=== PATIENT | male | born 1990 | race Caucasian/White ===

== ENCOUNTER 2024-06-09 09:24 | Observation (INO) ==
[2024-06-09] MEDS ORDERED: BENADRYL INJ 50 MG VIAL IV PRN (10:50)
[2024-06-09] MEDS ORDERED: MORPHINE SULFATE INJ 2 MG INJ IVP PRN (10:50)
--- NOTE | 2024-06-09 11:23 | DR.H&P ---
H&P History & Physical for Day of: H&P Date: 06/09/24 Chief Complaint Chief Complaint: "CANNOT KEEP ANYTHING DOWN" "ABDOMINAL PAIN" History of Present Illness History of Present Illness: PT IS 33 WM, DIRECT ADMIT FROM DR CHAPMAN OFFICE WITH INTRACTALBE ABDOMINAL PAIN WITH N/V, SEVERE SINCE THURSDAY. PT WAS SEEN IN THE ER ~3 WEEKS AGO WITH DEHYDRATION AND PANCREATITIS. SINCE ER VISIT PT HAS BEEN ON BLAND DIET, PROTONIX 40MG PO BID, PEPCID, CARAFATE, BENTYL AND PRN PHENERGAN WITHOUT IMPROVEMENT. PT HAD US OF GB ON OUTPT WITHOUT ACUTE FINDINGS. PT HAS NEEN REFERRED TO DR RUDOLPH ON OP, BUT DUE TO SEVERE SYMPTOMS AND ELECTROLYTE IMBALANCE PT ADMITTED FOR IV HYDRATION, PAIN CONTROL AND GI CONSULT. Past Surgical History Surgical History: Tonsillectomy Family History Family Medical History: ME and Hypertension Allergies Allergies Allergy/AdvReac Type Severity Reaction Status Date / Time Penicillins Allergy Verified 05/14/24 16:24 Review of Systems Constitutional: Weakness Eyes: No Symptoms Reported ENT: No Symptoms Reported Respiratory: No Symptoms Reported Cardiovascular: Palpitations Gastrointestinal: Nausea, Vomiting and Abdominal Pain Genitourinary: No Symptoms Reported Musculoskeletal: Back Pain Skin: No Symptoms Reported Neurological: Weakness Oriented: Normal Eyes: Normal Ear: Normal Nose: Normal Throat: Normal Respiratory: Clear Throughout Cardiovascular: Normal Auscultation: Bowel Sounds: Normal Palpation: Normal Tenderness: Normal Skin: Decreased Turgur Musculoskeletal: Back:Lumbar Mood Description: Anxious Affect: Normal Speech Pattern: Clear and Appropriate Assessment/Plan (1) Acute gastritis: Status: Acute Plan: ADMIT, NPO IV HYDRATION, PPI THERAPY BID PAIN CONTROL, ADMISSION LABS GI CONSULT WITH DR EVANS, RECOMMEND UPPER GI (2) Esophagitis: Status: Acute (3) Weight loss: Status: Acute (4) Dehydration, mild: Status: Acute
[2024-06-09] MEDS: D5 LR IV PRN (11:40)
[2024-06-09] MEDS: XYLOCAINE 2 % (PLAIN) INJ PRN (11:57)
[2024-06-09] MEDS: DIPRIVAN VIAL 320 ML IVP PRN (11:58)
[2024-06-09] MEDS: ZOFRAN INJ 4 MG VIAL IVP PRN ×2 (12:26→17:56)
[2024-06-09] MEDS: PROTONIX INJ 40 MG VIAL IVP SCH (12:27)
[2024-06-09] MEDS ORDERED: BENADRYL INJ 50 MG VIAL ONE (13:23)
[2024-06-09 13:26] LABS: ALANINE AMINOTRANSFERASE 25 Units/L (12-78); ALBUMIN 4.4 g/dL (3.4-5.0); ALKALINE PHOSPHATASE 71 Units/L (46-116); AMYLASE 76 Units/L (25-115); ASPARTATE AMINO TRANSFERASE 17 Units/L (15-37); BASOPHILS # (AUTO) 0.1 X10^3/uL (0.0-0.1); BLOOD UREA NITROGEN 16 mg/dL (7-18); CALCIUM 9.1 mg/dL (8.5-10.1); CARBON DIOXIDE 26.6 mmol/L (21-32); CHLORIDE 103 mmol/L (98-107); COR NA(FOR HYPERGLY) 141 mmol/L (136-145); CREATININE 1.09 mg/dL (0.70-1.30); EOSINOPHILS # (AUTO) 0.1 x10^3/uL (0.0-0.2); EOSINOPHILS % (AUTO) 1.6 % (0.9-2.9); GLUCOSE 130 mg/dL (65-99); HEMATOCRIT 42.3 % (42.0-54.0); HEMOGLOBIN 14.8 g/dL (13.5-18.0); LIPASE 33 Units/L (16-77); LYMPHOCYTES # (AUTO) 1.8 X10^3/uL (1.3-2.9); LYMPHOCYTES % (AUTO) 25.2 % (21.0-51.0); MEAN CORPUSCULAR HEMOGLOBIN 31.2 pg (27.0-34.0); MEAN CORPUSCULAR HGB CONC 34.9 g/dL (33.0-35.0); MEAN CORPUSCULAR VOLUME 89.3 fL (80.0-100.0); MEAN PLATELET VOLUME 8.9 fL (7.4-11.0); MONOCYTES # (AUTO) 0.5 x10^3/uL (0.3-0.8); MONOCYTES % (AUTO) 7.4 % (0.0-13.0); NEUTROPHILS # (AUTO) 4.7 x10^3/uL (2.2-4.8); NEUTROPHILS % (AUTO) 64.8 % (42.0-75.0); PLATELET COUNT 238 X10^3/uL (150.0-450.0); POTASSIUM 3.5 mmol/L (3.5-5.1); RED BLOOD COUNT 4.73 X10^6/uL (4.7-6.0); RED CELL DISTRIBUTION WIDTH 12.4 % (11.6-16.5); SODIUM 140 mmol/L (136-145); WHITE BLOOD COUNT 7.3 X10^3/uL (3.6-10.0); eGFR NON BLACK RACES > 60 (>60)
[2024-06-09] MEDS: BENADRYL INJ 50 MG VIAL IV PRN (13:29)
[2024-06-09 13:45] VITALS: BMI 21.9
[2024-06-09] MEDS: PEPCID 20 MG VIAL IVP ONE (14:00)
[2024-06-09] MEDS ORDERED: CONSULT PHARMACY - POTASSIUM & MAGNESIUM XX SCH (14:00)
[2024-06-09] MEDS: PHENERGAN INJ 25 MG IM ONE (14:00)
[2024-06-09] MEDS: NS 1,000 ML IV 1,000 ML IV SCH (15:47)
[2024-06-09] MEDS: K-RIDER 10 MEQ/100 ML WATER 10 MEQ/100 ML BAG IV SCH ×2 (15:48→22:07)
[2024-06-09] MEDS ORDERED: STERILE WATER IRRIGATION IR ONE (15:55)
[2024-06-09] MEDS ORDERED: LEVSIN/MAALOX/LIDOC VISC PO PRN (17:57)
[2024-06-09] MEDS ORDERED: OFIRMEV IV 1000 MG VIAL 1,000 MG/100 ML VIAL IV PRN (17:58)
[2024-06-09] MEDS: TORADOL 15 MG VIAL IVP PRN (22:37)
[2024-06-09] MEDS: NS 250 ML IV 250 ML IV ONE (22:40)
[2024-06-10] MEDS: D5 LR 1,000 ML 1,000 ML IV ONE (01:19)
[2024-06-10] MEDS: DIPRIVAN VIAL 20 ML ONE ×2 (01:20)
[2024-06-10 04:22] VITALS: O2SAT 98
[2024-06-10 06:27] LABS: BASOPHILS % (AUTO) 0.8 % (0.2-1.0); EOSINOPHILS # (AUTO) 0.4 x10^3/uL (0.0-0.2); EOSINOPHILS % (AUTO) 6.3 % (0.9-2.9); HEMATOCRIT 35.2 % (42.0-54.0); HEMOGLOBIN 12.6 g/dL (13.5-18.0); LYMPHOCYTES % (AUTO) 33.8 % (21.0-51.0); MEAN CORPUSCULAR HEMOGLOBIN 31.8 pg (27.0-34.0); MEAN CORPUSCULAR HGB CONC 35.7 g/dL (33.0-35.0); MEAN CORPUSCULAR VOLUME 89.2 fL (80.0-100.0); MEAN PLATELET VOLUME 8.8 fL (7.4-11.0); MONOCYTES # (AUTO) 0.5 x10^3/uL (0.3-0.8); MONOCYTES % (AUTO) 8.3 % (0.0-13.0); NEUTROPHILS % (AUTO) 50.8 % (42.0-75.0); PLATELET COUNT 168 X10^3/uL (150.0-450.0); RED BLOOD COUNT 3.95 X10^6/uL (4.7-6.0); RED CELL DISTRIBUTION WIDTH 12.5 % (11.6-16.5); WHITE BLOOD COUNT 5.8 X10^3/uL (3.6-10.0)
[2024-06-10 06:44] LABS: ALANINE AMINOTRANSFERASE 19 Units/L (12-78); ALBUMIN 3.3 g/dL (3.4-5.0); ALKALINE PHOSPHATASE 52 Units/L (46-116); ASPARTATE AMINO TRANSFERASE 24 Units/L (15-37); BLOOD UREA NITROGEN 16 mg/dL (7-18); CALCIUM 8.2 mg/dL (8.5-10.1); CARBON DIOXIDE 26.7 mmol/L (21-32); CHLORIDE 109 mmol/L (98-107); COR CA(FOR HYPOALB) 8.8 mg/dL (8.5-10.1); CREATININE 0.93 mg/dL (0.70-1.30); GLUCOSE 95 mg/dL (65-99); POTASSIUM 3.7 mmol/L (3.5-5.1); SODIUM 142 mmol/L (136-145); TOTAL PROTEIN 6.1 g/dL (6.4-8.2); eGFR NON BLACK RACES > 60 (>60)
[2024-06-10] MEDS ORDERED: CONSULT PHARMACY - POTASSIUM & MAGNESIUM XX SCH (07:00)
[2024-06-10] MEDS ORDERED: KINEVAC ONE (08:55)
[2024-06-10] MEDS ORDERED: KINEVAC IV ONE (09:00)
[2024-06-10] MEDS ORDERED: NS IV ONE (09:00)
[2024-06-10 10:58] LABS: BILIRUBIN,URINE NEGATIVE (NEGATIVE); BLOOD/HEMOGLOBIN,URINE NEGATIVE (NEGATIVE); GLUCOSE, URINE NEGATIVE (NEGATIVE); KETONES,URINE 3+ (NEGATIVE); LEUKOCYTE ESTERASE ,URINE NEGATIVE (NEGATIVE); NITRITES,URINE NEGATIVE (NEGATIVE); PROTEIN,URINE NEGATIVE (NEGATIVE); UROBILINOGEN,URINE NORMAL (NORMAL)
[2024-06-10 11:06] LABS: APPEARANCE,URINE CLEAR (CLEAR); COLOR,URINE YELLOW (YELLOW)
--- NOTE | 2024-06-10 11:50 | NM ---
EXAM:HIDA/HEPATOBILIARY SCAN W/EFHISTORY:erosive gastritis, duodenitis; 6.5mCi 99mTc Mebrofenin 1.2mcg KinevacCOMPARISON:None.TECHNIQUE:Followi ng the intravenous administration of the radiopharmaceutical, dynamic imaging was performed over the for 60 minutes. 1.2 mcg of Kinevac was injected intravenously and the gallbladder ejection fracture was measured over the following 30 minutes.FINDINGS:The liver concentrates and excretes the radiopharmaceutical normally. The gallbladder fills with activity. Following the injection of the Kinevac there is a proximally 13% emptying.IMPRESSION:Normal liver function and no evidence for biliary duct obstruction. There is incomplete gallbladder emptying.THIS IS AN ELECTRONICALLY VERIFIED FINAL REPORT06/10/2024 11:47 AM - Electronically signed by Jose Cruz Huynh MD
[2024-06-10 12:50] VITALS: BP 121/78; PULSE 76; RESP 19; TEMP 98.5
== END 2024-06-10 13:20 | disposition home or self-care (01) ==
LOC: MED/SURG
PROVIDERS: ADMIT Internal Medicine; ATTEND Internal Medicine
DX: R63.4 Abnormal weight loss; K29.60 Other gastritis without bleeding; Z68.22 Body mass index [BMI] 22.0-22.9, adult; K90.49 Malabsorption due to intolerance, not elsewhere classified; R73.09 Other abnormal glucose; K82.8 Other specified diseases of gallbladder; R11.2 Nausea with vomiting, unspecified; R10.84 Generalized abdominal pain; K21.00 Gastro-esophageal reflux disease with esophagitis, without bleeding; R10.13 Epigastric pain

== ENCOUNTER 2024-06-14 09:22 | Observation (INO) ==
[2024-06-14 10:29] LABS: BASOPHILS % (AUTO) 0.5 % (0.2-1.0); EOSINOPHILS # (AUTO) 0.2 x10^3/uL (0.0-0.2); EOSINOPHILS % (AUTO) 1.4 % (0.9-2.9); HEMATOCRIT 41.8 % (42.0-54.0); HEMOGLOBIN 14.8 g/dL (13.5-18.0); LYMPHOCYTES # (AUTO) 0.9 X10^3/uL (1.3-2.9); LYMPHOCYTES % (AUTO) 8.7 % (21.0-51.0); MEAN CORPUSCULAR HEMOGLOBIN 31.3 pg (27.0-34.0); MEAN CORPUSCULAR HGB CONC 35.3 g/dL (33.0-35.0); MEAN CORPUSCULAR VOLUME 88.4 fL (80.0-100.0); MEAN PLATELET VOLUME 8.4 fL (7.4-11.0); MONOCYTES # (AUTO) 0.5 x10^3/uL (0.3-0.8); MONOCYTES % (AUTO) 4.5 % (0.0-13.0); NEUTROPHILS # (AUTO) 8.9 x10^3/uL (2.2-4.8); NEUTROPHILS % (AUTO) 84.9 % (42.0-75.0); PLATELET COUNT 230 X10^3/uL (150.0-450.0); RED BLOOD COUNT 4.73 X10^6/uL (4.7-6.0); RED CELL DISTRIBUTION WIDTH 12.5 % (11.6-16.5); WHITE BLOOD COUNT 10.5 X10^3/uL (3.6-10.0)
[2024-06-14 10:44] LABS: ALANINE AMINOTRANSFERASE 23 Units/L (12-78); ALBUMIN 4.5 g/dL (3.4-5.0); ALKALINE PHOSPHATASE 67 Units/L (46-116); AMYLASE 60 Units/L (25-115); ASPARTATE AMINO TRANSFERASE 18 Units/L (15-37); BLOOD UREA NITROGEN 16 mg/dL (7-18); CALCIUM 9.3 mg/dL (8.5-10.1); CARBON DIOXIDE 24.6 mmol/L (21-32); CHLORIDE 103 mmol/L (98-107); COR NA(FOR HYPERGLY) 140 mmol/L (136-145); CREATININE 1.11 mg/dL (0.70-1.30); GLUCOSE 115 mg/dL (65-99); LIPASE 30 Units/L (16-77); POTASSIUM 3.6 mmol/L (3.5-5.1); SODIUM 140 mmol/L (136-145); eGFR NON BLACK RACES > 60 (>60)
[2024-06-14] MEDS: D5 1/2 NS 1,000 ML 1,000 ML IV SCH (10:44)
[2024-06-14] MEDS: ZOFRAN INJ 4 MG VIAL IVP PRN ×3 (10:46→17:40)
[2024-06-14] MEDS: DILAUDID INJ IVP PRN ×3 (10:49→17:53)
[2024-06-14 11:34] VITALS: BMI 21.6
[2024-06-14] MEDS ORDERED: BRIDION ONE (15:29)
[2024-06-14] MEDS ORDERED: ZOFRAN INJ 4 MG VIAL ONE ×2 (15:29→17:37)
[2024-06-14] MEDS ORDERED: ZEMURON 100 MG VIAL ONE (15:29)
[2024-06-14] MEDS ORDERED: DIPRIVAN VIAL 20 ML ONE (15:29)
[2024-06-14] MEDS ORDERED: OFIRMEV IV 1000 MG VIAL 1,000 MG/100 ML VIAL IV ONE (15:29)
[2024-06-14] MEDS ORDERED: REGLAN INJ 10 MG VIAL ONE (15:29)
[2024-06-14] MEDS ORDERED: PEPCID 20 MG VIAL ONE (15:29)
[2024-06-14] MEDS ORDERED: PRECEDEX INJ VIAL ONE (15:29)
[2024-06-14] MEDS ORDERED: XYLOCAINE 2 % (PLAIN) ONE (15:31)
[2024-06-14] MEDS ORDERED: BACTROBAN TOPICAL OINT ONE (15:31)
[2024-06-14] MEDS ORDERED: LR 1,000 ML IV 1,000 ML IV ONE (15:32)
[2024-06-14] MEDS ORDERED: VERSED ONE (15:32)
[2024-06-14] MEDS ORDERED: FENTANYL VIAL INJ 100 mcg ONE (15:32)
[2024-06-14] MEDS ORDERED: ANCEF VIAL 1 GRAM ONE (15:33)
[2024-06-14] MEDS ORDERED: NS 100 ML IV 100 ML ONE (15:34)
[2024-06-14] MEDS ORDERED: DECADRON INJ ONE (15:35)
[2024-06-14] MEDS ORDERED: BARHEMSYS INJ ONE (15:38)
[2024-06-14] MEDS: LR 1,000 ML IV 900 ML IV PRN (15:45)
[2024-06-14] MEDS: TRANSDERM-SCOP TD PRN (15:45)
[2024-06-14] MEDS: REGLAN INJ 10 MG VIAL IVP PRN (15:45)
[2024-06-14] MEDS: PEPCID 20 MG VIAL IVP PRN (15:45)
[2024-06-14] MEDS: VERSED IVP PRN (16:00)
[2024-06-14] MEDS ORDERED: DILAUDID INJ ONE ×2 (16:09→17:52)
[2024-06-14] MEDS ORDERED: KETAMINE HCL ONE (16:10)
[2024-06-14] MEDS: ANCEF VIAL 1 GRAM IV PRN (16:10)
[2024-06-14] MEDS ORDERED: ULTANE GAS IN ONE (16:10)
[2024-06-14] MEDS: FENTANYL VIAL INJ 100 mcg IVP PRN (16:15)
[2024-06-14] MEDS: XYLOCAINE 2 % (PLAIN) IJ PRN (16:15)
[2024-06-14] MEDS: ZEMURON 100 MG VIAL IVP PRN (16:15)
[2024-06-14] MEDS: KETAMINE HCL IV PRN (16:15)
[2024-06-14] MEDS: DECADRON INJ IVP PRN (16:24)
[2024-06-14] MEDS ORDERED: BENADRYL INJ 50 MG VIAL IVP PRN (16:29)
[2024-06-14] MEDS: OFIRMEV IV 1000 MG VIAL 1,000 MG/100 ML VIAL IV PRN (16:30)
[2024-06-14] MEDS ORDERED: NORMODYNE INJ 20 MG VIAL ONE (16:42)
[2024-06-14] MEDS: PRECEDEX INJ VIAL IVP PRN (16:57)
[2024-06-14] MEDS ORDERED: TORADOL 30 MG VIAL ONE (17:01)
[2024-06-14] MEDS: TORADOL 30 MG VIAL IVP PRN (17:03)
[2024-06-14] MEDS: NORMODYNE INJ 20 MG VIAL IVP PRN (17:03)
[2024-06-14] MEDS: DANTRIUM IVP PRN (17:09)
[2024-06-14] MEDS: BRIDION IVP PRN (17:10)
[2024-06-14] MEDS: DIPRIVAN VIAL 150 ML IVP PRN (17:21)
[2024-06-14] MEDS ORDERED: ZOFRAN INJ 4 MG VIAL IVP PRN (17:35)
[2024-06-14] MEDS ORDERED: D5 1/2 NS 1,000 ML 1,000 ML IV ONE (17:57)
[2024-06-14] MEDS: PROTONIX INJ 40 MG VIAL IVP SCH (20:17)
[2024-06-15 04:31] VITALS: TEMP 97.5
[2024-06-15 05:44] LABS: BASOPHILS % (AUTO) 0.1 % (0.2-1.0); HEMATOCRIT 36.4 % (42.0-54.0); HEMOGLOBIN 12.8 g/dL (13.5-18.0); LYMPHOCYTES # (AUTO) 0.9 X10^3/uL (1.3-2.9); LYMPHOCYTES % (AUTO) 9.9 % (21.0-51.0); MEAN CORPUSCULAR HEMOGLOBIN 31.3 pg (27.0-34.0); MEAN CORPUSCULAR VOLUME 89.5 fL (80.0-100.0); MEAN PLATELET VOLUME 8.7 fL (7.4-11.0); MONOCYTES # (AUTO) 0.6 x10^3/uL (0.3-0.8); MONOCYTES % (AUTO) 6.8 % (0.0-13.0); NEUTROPHILS # (AUTO) 7.5 x10^3/uL (2.2-4.8); NEUTROPHILS % (AUTO) 83.2 % (42.0-75.0); PLATELET COUNT 213 X10^3/uL (150.0-450.0); RED BLOOD COUNT 4.07 X10^6/uL (4.7-6.0); RED CELL DISTRIBUTION WIDTH 12.6 % (11.6-16.5); WHITE BLOOD COUNT 9.1 X10^3/uL (3.6-10.0)
[2024-06-15 05:57] LABS: ALANINE AMINOTRANSFERASE 29 Units/L (12-78); ALBUMIN 3.4 g/dL (3.4-5.0); ALKALINE PHOSPHATASE 55 Units/L (46-116); AMYLASE 50 Units/L (25-115); ASPARTATE AMINO TRANSFERASE 21 Units/L (15-37); BLOOD UREA NITROGEN 10 mg/dL (7-18); CALCIUM 8.3 mg/dL (8.5-10.1); CARBON DIOXIDE 28.7 mmol/L (21-32); CHLORIDE 104 mmol/L (98-107); COR NA(FOR HYPERGLY) 140 mmol/L (136-145); GLUCOSE 139 mg/dL (65-99); LIPASE 28 Units/L (16-77); MAGNESIUM 1.9 mg/dL (2.0-2.9); POTASSIUM 4.5 mmol/L (3.5-5.1); SODIUM 139 mmol/L (136-145); TOTAL PROTEIN 6.4 g/dL (6.4-8.2); eGFR NON BLACK RACES > 60 (>60)
[2024-06-15 08:26] VITALS: BP 129/83; PULSE 72; O2SAT 96
[2024-06-15] MEDS ORDERED: CONSULT PHARMACY - POTASSIUM & MAGNESIUM XX SCH (09:00)
[2024-06-15] MEDS: MAG-OX TAB PO SCH (09:26)
[2024-06-15 10:10] VITALS: RESP 16
== END 2024-06-15 12:00 | disposition home or self-care (01) ==
LOC: MED/SURG
PROVIDERS: ADMIT Surgery; ATTEND Surgery
DX: E83.42 Hypomagnesemia; R73.09 Other abnormal glucose; K82.8 Other specified diseases of gallbladder; R10.84 Generalized abdominal pain; R11.2 Nausea with vomiting, unspecified

== ENCOUNTER 2024-06-16 07:21 | Observation (INO) ==
[2024-06-16] MEDS ORDERED: MORPHINE SULFATE INJ 2 MG INJ ONE (07:36)
[2024-06-16 07:40] LABS: BASOPHILS # (AUTO) 0.1 X10^3/uL (0.0-0.1); BASOPHILS % (AUTO) 0.6 % (0.2-1.0); EOSINOPHILS # (AUTO) 0.1 x10^3/uL (0.0-0.2); EOSINOPHILS % (AUTO) 1.2 % (0.9-2.9); HEMATOCRIT 40.6 % (42.0-54.0); HEMOGLOBIN 14.3 g/dL (13.5-18.0); LYMPHOCYTES % (AUTO) 10.5 % (21.0-51.0); MEAN CORPUSCULAR HEMOGLOBIN 31.4 pg (27.0-34.0); MEAN CORPUSCULAR HGB CONC 35.2 g/dL (33.0-35.0); MEAN CORPUSCULAR VOLUME 89.1 fL (80.0-100.0); MEAN PLATELET VOLUME 8.5 fL (7.4-11.0); MONOCYTES # (AUTO) 0.7 x10^3/uL (0.3-0.8); MONOCYTES % (AUTO) 7.4 % (0.0-13.0); NEUTROPHILS # (AUTO) 7.3 x10^3/uL (2.2-4.8); NEUTROPHILS % (AUTO) 80.3 % (42.0-75.0); PLATELET COUNT 219 X10^3/uL (150.0-450.0); RED BLOOD COUNT 4.56 X10^6/uL (4.7-6.0); RED CELL DISTRIBUTION WIDTH 12.6 % (11.6-16.5); WHITE BLOOD COUNT 9.1 X10^3/uL (3.6-10.0)
[2024-06-16] MEDS: ZOFRAN INJ 4 MG VIAL IVP ONE ×2 (07:41→11:13)
[2024-06-16] MEDS: MORPHINE SULFATE INJ 2 MG INJ IVP ONE (07:43)
--- NOTE | 2024-06-16 08:07 | DR.EXTPAIN ---
HPI Time seen Time Seen by Provider: 06/16/24 08:05 PCP Primary Care Physician: tre valle HPI Comment HPI Comment: Patient cholecystectomy on Thursday. Started having abdominal pain in the umbilical area with nausea since 5 in the morning. Denies vomiting diarrhea. Denies fever. Denies chest pain or shortness of breath. Complaint/Symptoms Chief Complaint:: Patient states thursday he had his gallbladder out with dr price and this morning around 0500 he started having pain in his umbilical area along with nausea. Denies any vomiting or diarrhea. COVID-19 Coronavirus risk:travel/contact w/high risk person: No Has patient experienced Coronavirus symptoms: No Source History Provided: Patient Mode of arrival Mode of Arrival: Ambulatory Timing Onset of Chief Complaint: 06/16/24 PMH PMH Past Medical History: No Past Surgical History: Yes Surgical History: Cholecystectomy and Tonsillectomy Past Surgical History Comment: hernia Family History History of Family Medical Conditions: No Family Medical History: MS and Hypertension Social History Does patient currently use any type of tobacco product: No Have you used tobacco products in the last 12 months: No Type of Tobacco Use: None Does any household member use tobacco: No Alcohol Use: None Do you use any recreational Drugs:: No Lives With: Family Lives Where: Home Travel Risk Coronavirus risk:travel/contact w/high risk person: No Has patient experienced Coronavirus symptoms: No Infectious screening In the last 2 months have you had wt loss of >10#?: NO Have you had fever, night sweats or hemotysis?: No Have you traveled outside the country in the last 6 months?: No Isolation: Standard ROS Review of Systems Constitutional: No Symptoms Reported Eyes: No Symptoms Reported ENTM: No Symptoms Reported Respiratoy: No Symptoms Reported Cardiovascular: No Symptoms Reported Gastrointestinal/Abdominal: See HPI, Abdominal Pain and Nausea; negative Constipation, Diarrhea or Vomiting Genitourinary: No Symptoms Reported Neurological: No Symptoms Reported Musculoskeletal: No Symptoms Reported Integumentary: No Symptoms Reported Hematologic/Lymphatic: No Symptoms Reported Endocrine: No Symptoms Reported Psychiatric: No Symptoms Reported All Other Systems: Reviewed and Negative PE Vital Signs Vitals: Vital Signs Temperature 97.9 F Pulse Rate 89 Respiratory Rate 20 Respiratory Rate 15 Blood Pressure 157/95 O2 Sat by Pulse Oximetry 99 General Limitations: No Limitations General Appearance: Alert and In No Apparent Distress Head Head Exam: Normal Inspection Eyes Eye exam: Normal Appearance ENT ENT Exam: Normal Exam Neck Neck Exam: Normal Inspection Chest Chest Inspection: Normal Inspection Respiratory Respiratory Exam: Normal Lung Sounds Bilat Cardiovascular Cardiovascular Exam: Regular Rate and Normal Rhythm Abdominal Exam Abdominal Exam: Normal Bowel Sounds, Soft, Tenderness and Guarding; negative Distention, Rebound or Rigidity Extremities Extremities Exam: Normal Inspection Back Back Exam: Normal Inspection Neurological Neurological Exam: Alert, Oriented X3 and CN II-XII Intact Psychiatric Psychiatric Exam: Normal Affect and Normal Mood Skin Skin Exam: Warm, Dry, Intact and Normal Color COURSE Treatment Treatment: Patient had mild improvement in pain with morphine. Consultation Called: 10:03 Consultation Comments: Discussed case with surgeon, Dr. Hay. He is agreeable with admission for pain control and for HIDA scan in the morning. [facility] Labs Reviewed 06/16/24 07:33 06/16/24 07:33 Laboratory: WBC 9.1 X10^3/uL (3.6-10.0) 06/16/24 07:33 RBC 4.56 X10^6/uL (4.7-6.0) L 06/16/24 07:33 Hgb 14.3 g/dL (13.5-18.0) 06/16/24 07:33 Hct 40.6 % (42.0-54.0) L 06/16/24 07:33 MCV 89.1 fL (80.0-100.0) 06/16/24 07:33 MCH 31.4 pg (27.0-34.0) 06/16/24 07:33 MCHC 35.2 g/dL (33.0-35.0) H 06/16/24 07:33 RDW 12.6 % (11.6-16.5) 06/16/24 07:33 Plt Count 219 X10^3/uL (150.0-450.0) 06/16/24 07:33 MPV 8.5 fL (7.4-11.0) 06/16/24 07:33 Neut % (Auto) 80.3 % (42.0-75.0) H 06/16/24 07:33 Lymph % (Auto) 10.5 % (21.0-51.0) L 06/16/24 07:33 Miller % (Auto) 7.4 % (0.0-13.0) 06/16/24 07:33 Eos % (Auto) 1.2 % (0.9-2.9) 06/16/24 07:33 Baso % (Auto) 0.6 % (0.2-1.0) 06/16/24 07:33 Neut # (Auto) 7.3 x10^3/uL (2.2-4.8) H 06/16/24 07:33 Lymph # (Auto) 1.0 X10^3/uL (1.3-2.9) L 06/16/24 07:33 Miller # (Auto) 0.7 x10^3/uL (0.3-0.8) 06/16/24 07:33 Eos # (Auto) 0.1 x10^3/uL (0.0-0.2) 06/16/24 07:33 Baso # (Auto) 0.1 X10^3/uL (0.0-0.1) 06/16/24 07:33 Absolute Nucleated RBC 0.1 /100WBC 06/16/24 07:33 Sodium 140 mmol/L (136-145) 06/16/24 07:33 Corrected Sodium 140 mmol/L (136-145) 06/16/24 07:33 Potassium 3.4 mmol/L (3.5-5.1) L 06/16/24 07:33 Chloride 102 mmol/L (98-107) 06/16/24 07:33 Carbon Dioxide 26.2 mmol/L (21-32) 06/16/24 07:33 BUN 8 mg/dL (7-18) 06/16/24 07:33 Creatinine 0.99 mg/dL (0.70-1.30) 06/16/24 07:33 Est GFR (MDRD) Af Amer > 60 (>60) 06/16/24 07:33 Est GFR (MDRD) Non-Af > 60 (>60) 06/16/24 07:33 Glucose 116 mg/dL (65-99) H 06/16/24 07:33 Calcium 9.0 mg/dL (8.5-10.1) 06/16/24 07:33 Corrected Calcium TNP 06/16/24 07:33 Total Bilirubin 0.90 mg/dL (0.2-1.0) 06/16/24 07:33 AST 22 Units/L (15-37) 06/16/24 07:33 ALT 42 Units/L (12-78) 06/16/24 07:33 Alkaline Phosphatase 68 Units/L (46-116) 06/16/24 07:33 Total Protein 8.0 g/dL (6.4-8.2) 06/16/24 07:33 Albumin 4.4 g/dL (3.4-5.0) 06/16/24 07:33 Globulin 3.6 g/dL (2.5-4.5) 06/16/24 07:33 Albumin/Globulin Ratio 1.2 Ratio (1.1-2.1) 06/16/24 07:33 Amylase 57 Units/L (25-115) 06/16/24 07:33 Lipase 31 Units/L (16-77) 06/16/24 07:33 Opioid Opioid Risk Tool Age (Phil box if 16-45): Yes History of Preadolescent Sexual Abuse: No Total: 1 Total Score Risk Category: Low Risk Copyright: Juan Diego DAUGHERTY predicting aberrant behaviors Discharge Plan Diagnosis Discharge Problem: Abdominal pain Discharge Plan Patient Disposition: ADMITTED INPATIENT Condition: Stable Prescriptions: No Action ondansetron HCl 4 mg Tablet 4 mg PO Q6H PRNQty: 30 0RF pantoprazole 40 mg tablet,delayed release (DR/EC) 40 mg PO DAILY famotidine [Pepcid] 40 mg tablet 40 mg PO BID Qty: 20 0RF Health Concerns: Post Hospitalization: new medications and changes needed to prevent readmission or further decline. Pt educated and given instructions on all concerns. Plan of Treatment: Continue with present treatment and follow up plan. Pt is to keep follow up appointment as instructed and take medications as ordered. Orders to Discharge Patient Discharge Orders: Transfer (Routine); Ordered 06/16/24 Ordered By: Chicho Lozano Follow ups/Referrals Follow ups/Referrals: KASSIE SOLIS [Primary Care Provider] - 3 days Instructions Stand Alone Forms: Find Help Web Site, Post Hospital Follow Up Care
[2024-06-16 08:46] LABS: CARBON DIOXIDE 26.2 mmol/L (21-32); CHLORIDE 102 mmol/L (98-107); CREATININE 0.99 mg/dL (0.70-1.30); POTASSIUM 3.4 mmol/L (3.5-5.1); SODIUM 140 mmol/L (136-145); eGFR NON BLACK RACES > 60 (>60)
[2024-06-16 08:47] LABS: ALBUMIN 4.4 g/dL (3.4-5.0); ALKALINE PHOSPHATASE 68 Units/L (46-116); AMYLASE 57 Units/L (25-115); ASPARTATE AMINO TRANSFERASE 22 Units/L (15-37); COR NA(FOR HYPERGLY) 140 mmol/L (136-145); GLUCOSE 116 mg/dL (65-99); LIPASE 31 Units/L (16-77)
[2024-06-16 09:26] LABS: BLOOD UREA NITROGEN 8 mg/dL (7-18)
[2024-06-16 09:27] LABS: ALANINE AMINOTRANSFERASE 42 Units/L (12-78)
--- NOTE | 2024-06-16 09:45 | CT ---
EXAM:CT abdomen pelvis with contrastHISTORY:Generalized abdominal pain status post cholecystectomy 06/14/2024TECHNIQUE:Axial postcontrast images with coronal and sagittal reformats. Dose reduction procedures were used with mA/kv adjusted for body size.COMPARISON:05/14/2024FINDINGS:Lung bases are clear. Trace pneumoperitoneum is present likely residual to the patient's very recent cholecystectomy. The liver, spleen, adrenal glands, and pancreas are within normal limits. Patient is very recently status post cholecystectomy. Surgical clips are present in the area of the gallbladder fossa. There is a 2.3 x 1.5 x 1.6 cm gas and fluid collection within the gallbladder fossa. This could represent seroma, biloma, or abscess. No perihepatic fluid is identified. If bile leak is suspected, nuclear medicine biliary scan would be of further diagnostic value. Kidneys are unobstructed and without stones or masses. No ureteral calculi are identified. Appendix is normal. Abdominal aorta is normal. No enlarged intraperitoneal or retroperitoneal lymphadenopathy is identified. No findings to suggest enteritis, colitis, or diverticulitis. No evidence for small or large bowel obstruction. Examination of the pelvis demonstrated no evidence for pelvic masses, or pelvic lymphadenopathy. No bladder abnormalities identified. There is very small amount of fluid within the pelvis which could be physiologic in a patient this age or could be related to the patient's recent surgery. No lytic or blastic skeletal lesions of significance are identified.IMPRESSION:Small pneumoperitoneum most likely postoperative as the patient had cholecystectomy .3 x 1.5 x 1.6 cm gas and fluid collection in the gallbladder fossa which could represent small seroma, biloma, or abscess. If bile leak is suspected, nuclear medicine biliary scan would be of further diagnostic value.THIS IS AN ELECTRONICALLY VERIFIED FINAL REPORT06/16/2024 9:42 AM - Electronically signed by Kobi Mullins MD
[2024-06-16] MEDS: OFIRMEV IV 1000 MG VIAL 1,000 MG/100 ML VIAL IV ONE (10:12)
[2024-06-16] MEDS ORDERED: TYLENOL 325 MG TAB PO PRN (12:48)
[2024-06-16] MEDS ORDERED: OFIRMEV IV 1000 MG VIAL 1,000 MG/100 ML VIAL IV PRN (12:48)
[2024-06-16] MEDS: MORPHINE SULFATE INJ 2 MG INJ IVP PRN (13:51)
[2024-06-16] MEDS: NS 1,000 ML IV 1,000 ML IV SCH (13:51)
[2024-06-16 17:26] VITALS: BMI 21.6
[2024-06-16] MEDS: MAG-OX TAB PO SCH (18:30)
[2024-06-16] MEDS: KLOR-CON 10 MEQ TAB PO ONE (18:30)
[2024-06-16] MEDS: ATIVAN INJ 2 MG VIAL IVP PRN (21:37)
[2024-06-16] MEDS: PEPCID TAB 20 MG PO SCH (22:08)
[2024-06-16] MEDS: CONSULT PHARMACY - POTASSIUM & MAGNESIUM XX SCH (23:05)
[2024-06-17 05:17] LABS: BASOPHILS % (AUTO) 0.7 % (0.2-1.0); EOSINOPHILS # (AUTO) 0.2 x10^3/uL (0.0-0.2); EOSINOPHILS % (AUTO) 3.3 % (0.9-2.9); HEMATOCRIT 35.2 % (42.0-54.0); LYMPHOCYTES # (AUTO) 1.6 X10^3/uL (1.3-2.9); LYMPHOCYTES % (AUTO) 30.1 % (21.0-51.0); MEAN CORPUSCULAR HEMOGLOBIN 31.3 pg (27.0-34.0); MEAN CORPUSCULAR HGB CONC 34.8 g/dL (33.0-35.0); MEAN CORPUSCULAR VOLUME 90.1 fL (80.0-100.0); MEAN PLATELET VOLUME 8.6 fL (7.4-11.0); MONOCYTES # (AUTO) 0.5 x10^3/uL (0.3-0.8); MONOCYTES % (AUTO) 9.8 % (0.0-13.0); NEUTROPHILS % (AUTO) 56.1 % (42.0-75.0); PLATELET COUNT 192 X10^3/uL (150.0-450.0); RED BLOOD COUNT 3.91 X10^6/uL (4.7-6.0); RED CELL DISTRIBUTION WIDTH 12.8 % (11.6-16.5); WHITE BLOOD COUNT 5.4 X10^3/uL (3.6-10.0)
[2024-06-17 05:29] LABS: ALANINE AMINOTRANSFERASE 37 Units/L (12-78); ALBUMIN 3.4 g/dL (3.4-5.0); ALKALINE PHOSPHATASE 58 Units/L (46-116); AMYLASE 51 Units/L (25-115); ASPARTATE AMINO TRANSFERASE 21 Units/L (15-37); BLOOD UREA NITROGEN 9 mg/dL (7-18); CARBON DIOXIDE 28.3 mmol/L (21-32); CHLORIDE 103 mmol/L (98-107); CREATININE 0.81 mg/dL (0.70-1.30); GLUCOSE 99 mg/dL (65-99); LIPASE 28 Units/L (16-77); POTASSIUM 3.8 mmol/L (3.5-5.1); SODIUM 140 mmol/L (136-145); TOTAL PROTEIN 6.5 g/dL (6.4-8.2); eGFR NON BLACK RACES > 60 (>60)
[2024-06-17 05:33] LABS: CALCIUM 8.6 mg/dL (8.5-10.1)
[2024-06-17 05:35] LABS: HEMOGLOBIN 12.3 g/dL (13.5-18.0)
[2024-06-17] MEDS: ZOFRAN INJ 4 MG VIAL ONE ×2 (07:03)
[2024-06-17] MEDS: OFIRMEV IV 1000 MG VIAL 1,000 MG/100 ML VIAL IV ONE (07:03)
[2024-06-17] MEDS: ZOFRAN INJ 4 MG VIAL IVP PRN (08:29)
[2024-06-17 12:04] VITALS: BP 131/86; PULSE 81; RESP 17; TEMP 98.6; O2SAT 98
[2024-06-17] MEDS ORDERED: ATIVAN TAB 0.5 MG PO PRN (14:00)
--- NOTE | 2024-06-17 14:55 | NM ---
EXAM: NUCLEAR MEDICINE HEPATOBILIARY SCINTIGRAPHY HISTORY: abd pain; [id number] Mebrofenin recent cholecystectomy. COMPARISON: CT dated 313 . RADIOPHARMACEUTICAL: 6.5 mCi Tc-99m mebrofenin i.v. dose sincalide if pretreatment, dose morphine sul fate if administered, describe interventions TECHNIQUE: Following intravenous administration of Tc-99m mebrofenin, sequential abdominal images were obtained through 60 minutes. Then mg morphine i.v. was administered. FINDINGS: There is prompt, uniform accumulation of the tracer by the liver. There is normal filling of the intr ahepatic ducts and common bile duct. Activity seen in the duodenal after approximately 20 minutes. No activity pooling within the gallbladder fossa or along the inferior liver margin to suggest bile l eak. IMPRESSION: No evidence of bile leak. THIS IS AN ELECTRONICALLY VERIFIED FINAL REPORT 06/17/2024 2:51 PM - Electronically signed by Cedric Herrera MD
== END 2024-06-17 15:11 | disposition home or self-care (01) ==
LOC: MED/SURG 07:21 → ER 07:21 → MED/SURG 12:23
PROVIDERS: ADMIT Surgery; ATTEND Surgery
DX: Z90.49 Acquired absence of other specified parts of digestive tract; K66.8 Other specified disorders of peritoneum; R10.84 Generalized abdominal pain; Z98.890 Other specified postprocedural states